=== PATIENT | male | born 1995 ===

== ENCOUNTER 2016-12-10 17:04 | Emergency (ER) | payer OTHER ==
[2016-12-10 17:15] VITALS: BMI 23.5
[2016-12-10 17:18] VITALS: BP 140/81; PULSE 74; RESP 16; TEMP 97.4
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
[2016-12-10 18:49] VITALS: O2SAT 99
== END 2016-12-10 18:49 | disposition home or self-care (01) ==
LOC: ED 17:04
DX: S09.90XA Unspecified injury of head, initial encounter (principal); V49.9XXA Car occupant (driver) (passenger) injured in unspecified traffic accident, initial encounter; M54.2 Cervicalgia
CPT/HCPCS: 70450; 72125; 96372; 99284; J1885